=== PATIENT | male | born 1985 | race African-American/Black ===

== ENCOUNTER 2020-05-12 01:28 | Emergency (ER) | payer OTHER ==
[~2020-05-12] VITALS: Ht 180.3 cm; Wt 73.0 kg
[2020-05-12 01:31] VITALS: BP 143/86
== END 2020-05-12 01:56 | disposition left against medical advice (07) ==
LOC: ER 01:28
DX: R56.9 Unspecified convulsions (principal); F12.10 Cannabis abuse, uncomplicated
CPT/HCPCS: 93005; 99283

== ENCOUNTER 2024-11-19 03:57 | Inpatient (IN) | payer OTHER ==
[~2024-11-19] VITALS: Ht 182.9 cm; Wt 79.4 kg
[2024-11-19] MEDS: MIDAZOLAM HCL 2 MG/2 ML VIAL IM ONE (04:16)
[2024-11-19] MEDS: OLANZAPINE 10 MG/VIAL IM ONE (04:16)
[2024-11-19 05:55] LABS: BASOPHILS % 0.8 % (0.0-2.0); CHLORIDE 107 mEq/L (98-107); EOSINOPHILS % 0.3 % (0.0-5.0); HEMATOCRIT. 38.7 % (42.0-52.0); HEMOGLOBIN. 12.8 g/dL (14.0-18.0); LYMPHOCYTES % 29.8 % (20.0-50.0); MEAN CORPUSCULAR HEMOGLOBIN 29.9 pg (28.0-32.0); MEAN CORPUSCULAR HGB CONC 33.1 g/dL (31.0-37.0); MEAN CORPUSCULAR VOLUME 90.2 fL (80.0-94.0); MEAN PLATELET VOLUME 8.4 fl (7.4-10.4); MONOCYTES % 5.3 % (2.0-8.0); NEUTROPHILS % 63.8 % (40.0-76.0); PLATELET 348 x1000/uL (130-400); POTASSIUM 3.1 mEq/L (3.5-5.1); RED BLOOD CELL COUNT 4.29 mill/uL (4.7-6.1); RED CELL DISTRIBUTION WIDTH 15.1 % (11.6-14.6); SODIUM 144 mEq/L (136-145); WHITE BLOOD COUNT 13.1 x1000/uL (4.5-11.0)
[2024-11-19 05:56] LABS: CARBON DIOXIDE 25 mEq/L (21-32)
[2024-11-19 06:01] LABS: CREATININE 0.9 mg/dL (0.6-1.3); GLUCOSE 98 mg/dL (70-105); UREA NITROGEN BLOOD 10 mg/dL (9-23)
[2024-11-19 06:02] LABS: ETHANOL BLOOD 134 mg/dL (<10)
[2024-11-19 06:15] LABS: TROPONIN I HIGH SENSITIVITY < 4 ng/L (3.0-53)
[2024-11-19] MEDS: POTASSIUM CHLORIDE 20MEQ/PACKET PO ONE (06:15)
[2024-11-19 06:49] LABS: CLARITY URINE CLEAR (CLEAR); COLOR URINE YELLOW (YELLOW); GLUCOSE URINE NEGATIVE (NEGATIVE); KETONES URINE NEGATIVE (NEGATIVE); LEUKOCYTE ESTERASE URINE TRACE (NEGATIVE); NITRITE URINE NEGATIVE (NEGATIVE); OCCULT BLOOD URINE 1+ (NEGATIVE); PH URINE 5.5 (4.5-8.0); PROTEIN URINE TRACE (NEGATIVE); UROBILINOGEN URINE 0.2 E.U./dL (0.2-1.0)
[2024-11-19 07:12] LABS: *AMPHETAMINES SCREEN URINE NEGATIVE (NEGATIVE); *BARBITURATES SCREEN URINE NEGATIVE (NEGATIVE); *BENZODIAZEPINES SCREEN URINE PRESUMPTIVE POSITIVE (NEGATIVE); *COCAINE SCREEN URINE PRESUMPTIVE POSITIVE (NEGATIVE); CANNABINOID URINE SCREEN PRESUMPTIVE POSITIVE (NEGATIVE); ECSTASY MDMA SCREEN URINE NEGATIVE (NEGATIVE); METHADONE URINE SCREEN NEGATIVE (NEGATIVE); OPIATES URINE SCREEN NEGATIVE (NEGATIVE); PHENCYCLIDINE URINE SCREEN NEGATIVE (NEGATIVE)
[2024-11-19] MEDS ORDERED: MAGNESIUM/ALUMINUM HYDROXIDE/SIMETHICONE 30ML UDC PO PRN (07:15)
[2024-11-19] MEDS ORDERED: HYDROCODONE/ACETAMINOPHEN 5/325MG TABLET PO PRN (07:15)
[2024-11-19] MEDS ORDERED: CHLORDIAZEPOXIDE 25MG CAPSULE PO PRN ×3 (07:15)
[2024-11-19] MEDS ORDERED: ONDANSETRON HCL 4MG/2ML INJ IV PRN (07:15)
[2024-11-19] MEDS ORDERED: BISACODYL 5MG TABLET PO PRN (07:15)
[2024-11-19] MEDS ORDERED: ACETAMINOPHEN 325MG TABLET PO PRN ×2 (07:15)
[2024-11-19] MEDS ORDERED: LORAZEPAM 1MG TABLET PO PRN ×3 (07:15)
[2024-11-19] MEDS ORDERED: MORPHINE SULFATE 2 MG/ML INJ (NOT FOR IM USE) IV PRN (07:15)
[2024-11-19] MEDS ORDERED: NITROGLYCERIN 0.4MG TABLET SL SL PRN (07:15)
[2024-11-19] MEDS ORDERED: MAGNESIUM HYDROXIDE 400MG/5ML 30ML UDC PO PRN (07:15)
[2024-11-19 07:39] LABS: SQUAMOUS EPITHELIAL CELL URINE FEW /lpf (RARE/1+)
[2024-11-19 07:40] LABS: BACTERIA URINE TRACE; RBC URINE 0-2 /hpf (0-2)
[2024-11-19 07:44] LABS: TROPONIN I HIGH SENSITIVITY < 4 ng/L (3.0-53)
[2024-11-19] MEDS: THIAMINE HCL 100 MG/1 ML 2ML VIAL IM SCH (09:00)
[2024-11-19 09:43] VITALS: BP 116/77; PULSE 60; RESP 16; TEMP 36.7; O2SAT 98
[2024-11-19 09:44] VITALS: BP 116/77; PULSE 60; RESP 16; TEMP 36.7
[2024-11-19] MEDS: MULTIVITAMINS,THER W-MINERALS TABLET PO SCH (10:08)
[2024-11-19] MEDS: FAMOTIDINE 20MG TABLET PO SCH (10:08)
[2024-11-19] MEDS: AMLODIPINE 2.5MG TABLET PO SCH (10:08)
[2024-11-19] MEDS: ASPIRIN 81MG TABLET PO SCH (10:08)
[2024-11-19] MEDS: FOLIC ACID 1MG TABLET PO SCH (10:08)
[2024-11-19] MEDS ORDERED: CIPR250S3 MT (11:49)
[2024-11-19] MEDS ORDERED: FAMO20TA8 PO (11:50)
[2024-11-19] MEDS ORDERED: PANT40TA51 MT (11:57)
[2024-11-19] MEDS ORDERED: FOLI-43 MT (11:57)
[2024-11-19 12:00] VITALS: BP 132/84; PULSE 80; RESP 20; TEMP 36.9; O2SAT 100
[2024-11-19] MEDS: POTASSIUM CHLORIDE 20MEQ TABLET SR PO SCH (12:39)
[2024-11-19 12:42] VITALS: BP 130/74; PULSE 70; TEMP 98; O2SAT 98
[2024-11-19 12:45] LABS: BASOPHILS % 0.8 % (0.0-2.0); EOSINOPHILS % 1.7 % (0.0-5.0); HEMATOCRIT. 39.8 % (42.0-52.0); HEMOGLOBIN. 12.8 g/dL (14.0-18.0); LYMPHOCYTES % 30.9 % (20.0-50.0); MEAN CORPUSCULAR HEMOGLOBIN 29.1 pg (28.0-32.0); MEAN CORPUSCULAR HGB CONC 32.2 g/dL (31.0-37.0); MEAN CORPUSCULAR VOLUME 90.4 fL (80.0-94.0); MEAN PLATELET VOLUME 8.7 fl (7.4-10.4); MONOCYTES % 8.9 % (2.0-8.0); NEUTROPHILS % 57.7 % (40.0-76.0); PLATELET 362 x1000/uL (130-400); RED BLOOD CELL COUNT 4.41 mill/uL (4.7-6.1); WHITE BLOOD COUNT 12.5 x1000/uL (4.5-11.0)
[2024-11-19 12:54] LABS: CARBON DIOXIDE 28 mEq/L (21-32); CHLORIDE 107 mEq/L (98-107); POTASSIUM 3.9 mEq/L (3.5-5.1); SODIUM 142 mEq/L (136-145)
[2024-11-19 12:55] LABS: CALCIUM 9.2 mg/dL (8.7-10.4)
[2024-11-19 13:00] LABS: GLUCOSE 78 mg/dL (70-105); UREA NITROGEN BLOOD 9 mg/dL (9-23)
[2024-11-19 13:02] LABS: PHOSPHORUS 2.6 mg/dL (2.5-4.9)
[2024-11-19] MEDS ORDERED: CEFTRIAXONE 1GM/50ML 50 ML IV SCH (14:00)
[2024-11-19] MEDS ORDERED: ATORVASTATIN CALCIUM 40MG TABLET PO SCH (21:00)
[2024-11-21] MEDS ORDERED: THIAMINE HCL 100MG TABLET PO SCH (09:00)
== END 2024-11-19 14:13 | disposition home or self-care (01) | DRG 92 ==
LOC: ER 03:57 → 8WST 06:28
PROVIDERS: ADMIT Internal Medicine; ATTEND Internal Medicine
DX: G92.8 Other toxic encephalopathy (principal); N39.0 Urinary tract infection, site not specified; D64.9 Anemia, unspecified; E87.6 Hypokalemia; F10.129 Alcohol abuse with intoxication, unspecified; I10 Essential (primary) hypertension; Y90.6 Blood alcohol level of 120-199 mg/100 ml; R07.89 Other chest pain; Z79.899 Other long term (current) drug therapy
CPT/HCPCS: 36415; 71045; 80048; 80305; 80320; 81003; 83735; 84100; 84484; 85025; 93005; 99291; J0696; J2250; J3411; J3490; G0480